=== PATIENT | male | born 1985 | race Caucasian/White ===

== ENCOUNTER 2017-06-07 18:24 | Emergency (ER) | payer SELFPAY ==
[~2017-06-07] VITALS: Ht 160 cm; Wt 56.3 kg
[2017-06-07 19:41] LABS: HEMATOCRIT 30.8 % (38.0-50.0); MCH 36.7 PG (29.0-34.0); MCHC 35.7 G/DL (30.0-36.0); MCV 102.7 FL (86-99); RBC DIS.WIDTH-CV 12.1 % (11.8-14.6); RBC DIS.WIDTH-SD 46.1 % (39-53); WHITE BLOOD COUNT 2.6 K/uL (4.1-10.2)
[2017-06-07 19:50] LABS: ADD MIUA? NO; BILIRUBIN NEGATIVE; BLOOD NEGATIVE; COLOR STRAW ((YELLOW)); GLUCOSE (STRIP) NEGATIVE; KETONES NEGATIVE; LEUKOCYTES NEGATIVE; NITRITE NEGATIVE; PROTEIN (STRIP) NEGATIVE; SPECIFIC GRAVITY 1.006 (1.000-1.030); UCUL ADDED? NO; UROBILINOGEN 0.2 MG/DL (0.2-1.0)
[2017-06-07 19:55] LABS: CHLORIDE 104 mEq/L (99-109); POTASSIUM 3.4 mEq/L (3.7-5.4); SODIUM 134 mEq/L (136-147)
[2017-06-07 19:57] LABS: GLUCOSE 104 mg/dL (70-99)
[2017-06-07] MEDS ORDERED: LAMICTAL25 MG PO (19:57)
[2017-06-07] MEDS ORDERED: CLONAZEPAM0.5 MG PO (19:57)
[2017-06-07 19:58] LABS: ANION GAP 5 MEQ/L (2-14)
[2017-06-07 20:01] LABS: UREA NITROGEN (BUN) 8 mg/dL (9-23)
[2017-06-07 20:04] LABS: GFR ESTIMATE (CALCULATED) > 59 mL/min/
[2017-06-07 20:14] LABS: IMM.PLATELET FRACTION 1.4 (1-7); MEAN PLAT.VOLUME 8.7 uM^3 (9.0-12.4); PLATELET COUNT 49 K/uL (156-360)
[2017-06-07 20:15] LABS: PLAT.SUFFICIENCY VERY DECREASED
[2017-06-07 23:37] VITALS: BP 92/57
== END 2017-06-07 23:40 | disposition home or self-care (01) ==
LOC: EME 18:24
PROVIDERS: Emergency Medicine
DX: D64.9 Anemia, unspecified (principal); D69.6 Thrombocytopenia, unspecified; D72.819 Decreased white blood cell count, unspecified; G40.909 Epilepsy, unspecified, not intractable, without status epilepticus; F70 Mild intellectual disabilities
CPT/HCPCS: 70450; 80048; 81003; 85027; 99281; 99285; J7030